=== PATIENT | female | born 1945 | race Asian ===

== ENCOUNTER 2018-07-26 10:04 | Emergency (ER) | payer MEDICARE, OTHER ==
[~2018-07-26] VITALS: Ht 154.9 cm; Wt 72.6 kg
[~2018-07-26 10:04] MED LIST: ATENOLOL 50 MG50 M1; CLONIDINE HCL0.2 M2; HYZAAR 100-251 EACH; NORCO 5-325 TA1 EACH PO; ZOCOR40 MG
[2018-07-26 11:27] VITALS: BP 156/75
== END 2018-07-26 11:28 | disposition home or self-care (01) ==
LOC: M.ERS 10:04
DX: M20.012 Mallet finger of left finger(s) (principal); I10 Essential (primary) hypertension; E78.00 Pure hypercholesterolemia, unspecified

== ENCOUNTER 2019-12-07 05:37 | Emergency (ER) | payer MEDICARE, OTHER ==
[~2019-12-07] VITALS: Ht 152.4 cm; Wt 71.2 kg
[2019-12-07 06:13] LABS: HEMATOCRIT 37.3 % (37.0-47.0); HEMOGLOBIN 12.5 gm/dL (12.0-15.0); MCH 29.3 pg (26.0-34.0); MCHC 33.5 g/dL (28.0-37.0); MCV 87.5 fL (80.0-100.0); MPV 6.9 fl. (7.2-11.1); NUCLEATED RBCS 0 /100WBC; PLATELET COUNT* 288 thou/uL (150-400); RBC 4.26 mil/uL (4.20-5.00); RDW-CV 14.2 % (10.5-14.5); WBC 6.3 thou/uL (4.0-11.0)
[2019-12-07 06:19] LABS: CALCIUM 8.6 mg/dL (8.5-10.1); CREATININE 0.9 mg/dL (0.6-1.3); POTASSIUM 3.7 mmol/L (3.5-5.1)
[2019-12-07 06:24] LABS: TOTAL BILIRUBIN 0.3 mg/dL (<0.1-1.0); TOTAL PROTEIN 7.3 g/dL (6.4-8.2)
[2019-12-07 07:02] LABS: ABSOLUTE LYMPHOCYTES 0.3 thou/uL (0.8-5.3); ABSOLUTE MONOCYTES 0.3 thou/uL (0.0-1.2); ABSOLUTE NEUTROPHILS 5.7 thou/uL (1.6-8.1); ANISOCYTOSIS 1+; OVALOCYTES Occasional; PLATELET ESTIMATE ADEQUATE; POIKILOCYTOSIS 1+
[2019-12-07 08:46] LABS: INFLUENZA A ANTIGEN Positive (Negative); INFLUENZA B ANTIGEN Negative (Negative)
--- NOTE | 2019-12-07 10:20 | EKG ---
[place] [address] ELECTROCARDIOGRAM REPORT Name: LETI RAE Room: [facility]#: [id number] Admission: 12/07/19 Attend Phys: Discharge: Date of : 45 Date of Service: 12/07/1944 Report #: [id number] THIS REPORT FOR: //name// [facility] ED Test Date: 2019-12-07 Test Time: 05:44:03 Pat Name: LETI RAE Department: Room: Gender: Banquet Manager: [place] : 1945 Requested By: Delbert Ambrose Order Number: [id number] MD: Nicko Nicholson Measurements Intervals [place] Rate: 80 P: 34 [place]: 185 QRS: -15 QRSD: 87 T: 14 QT: 385 QTc: 445 Interpretive Statements Sinus rhythm Borderline left axis deviation Minimal ST elevation, anterior leads suspect early repolarization No previous ECG available for comparison Electronically Signed On 12-07-2019 10:19:31 [employer] by Nicko Nicholson [email or web address] <ELECTRONICALLY SIGNED> By: Nicko Nicholson MD, [facility] 12/07/19 1019 [id number] Nicko Nicholson MD, FACC /EPI
[2019-12-07] MEDS ORDERED: TAMIFLU75 MG PO (10:31)
[2019-12-07 10:48] VITALS: BP 131/75
== END 2019-12-07 10:49 | disposition home or self-care (01) ==
LOC: M.ERS 05:37
PROVIDERS: Emergency Medicine Emergency Medical Services
DX: J11.1 Influenza due to unidentified influenza virus with other respiratory manifestations (principal); R51 Headache; I10 Essential (primary) hypertension; E78.00 Pure hypercholesterolemia, unspecified; Z88.8 Allergy status to other drugs, medicaments and biological substances